=== PATIENT | female | born 1950 | race Caucasian/White ===

== ENCOUNTER 2020-11-20 05:49 | Emergency (ER) | payer OTHER, MEDICARE ==
[2020-11-20 06:31] VITALS: TEMP 98.4; BMI 32.1
[2020-11-20] MEDS ORDERED: ACETAMINOPHEN 500 MG TABLET (FP) PO ONE ×3 (07:18→19:30)
[2020-11-20] MEDS ORDERED: ACETAMINOPHEN 325 MG TABLET (FP) PO ONE ×2 (07:18→22:48)
[2020-11-20] MEDS ORDERED: traMADol HCL 50 MG TABLET PO ONE ×5 (07:18→22:49)
[2020-11-20] MEDS ORDERED: ACETAMINOPHEN 325 MG TABLET (FP) ONE ×4 (07:27→22:50)
[2020-11-20 11:07] VITALS: BP 147/64; PULSE 74
[2020-11-20] MEDS ORDERED: LOSARTAN POTASSIUM 50 MG TABLET PO ONE (12:17)
[2020-11-20] MEDS ORDERED: RIVAROXABAN 15 MG TABLET PO ONE (12:17)
[2020-11-20] MEDS ORDERED: LOSARTAN POTASSIUM 50 MG TABLET ONE (13:00)
[2020-11-20] MEDS ORDERED: RIVAROXABAN 10 MG TABLET PO ONE (13:15)
[2020-11-20] MEDS ORDERED: traMADol HCL 50 MG TABLET ONE ×3 (13:20→22:51)
== END 2020-11-20 23:03 ==
LOC: JER 05:49
DX: S72.91XA Unspecified fracture of right femur, initial encounter for closed fracture (principal)
CPT/HCPCS: 73523-TC-FY; 73552-TC-RT-FY; 73700-TC-RT; 99284-25; C9803; U0003; U0005